=== PATIENT | male | born 1950 | race Caucasian/White ===

== ENCOUNTER 2023-08-23 09:03 | Outpatient (RCR) | payer OTHER, SELFPAY | END 2023-08-23 23:59 | disposition home or self-care (01) | LOC: RPT 09:03 | PROVIDERS: ATTENDING PHYSICIAN Specialist; PRIMARYCARE PHYSICIAN Internal Medicine | DX: C61 Malignant neoplasm of prostate (principal); M62.89 Other specified disorders of muscle; R39.15 Urgency of urination; Z73.6 Limitation of activities due to disability; N39.41 Urge incontinence; N39.3 Stress incontinence (female) (male); R10.2 Pelvic and perineal pain | CPT/HCPCS: 97014; 97110; 97112; 97140; 97530 ==

== ENCOUNTER 2023-09-06 08:49 | Outpatient (RCR) | payer OTHER, SELFPAY | END 2023-09-06 23:59 | disposition home or self-care (01) | LOC: RPT 08:49 | PROVIDERS: ATTENDING PHYSICIAN Specialist; PRIMARYCARE PHYSICIAN Internal Medicine | DX: C61 Malignant neoplasm of prostate (principal); M62.89 Other specified disorders of muscle; R39.15 Urgency of urination; Z73.6 Limitation of activities due to disability; N39.41 Urge incontinence; N39.3 Stress incontinence (female) (male); R10.2 Pelvic and perineal pain | CPT/HCPCS: 97110; 97163; 97530 ==

== ENCOUNTER 2023-10-21 11:59 | Outpatient (RCR) | payer OTHER, SELFPAY | END 2023-10-21 23:59 | disposition home or self-care (01) | LOC: RPT 11:59 | PROVIDERS: ATTENDING PHYSICIAN Specialist; PRIMARYCARE PHYSICIAN Internal Medicine | DX: C61 Malignant neoplasm of prostate (principal); M62.89 Other specified disorders of muscle; R39.15 Urgency of urination; N39.41 Urge incontinence; Z73.6 Limitation of activities due to disability; N39.3 Stress incontinence (female) (male); R10.2 Pelvic and perineal pain | CPT/HCPCS: 97112; 97530 ==

== ENCOUNTER 2023-11-15 13:11 | Outpatient (RCR) | payer OTHER, SELFPAY | END 2023-11-15 23:59 | disposition home or self-care (01) | LOC: RPT 13:11 | PROVIDERS: ATTENDING PHYSICIAN Specialist; PRIMARYCARE PHYSICIAN Internal Medicine | DX: C61 Malignant neoplasm of prostate (principal); M62.89 Other specified disorders of muscle; R39.15 Urgency of urination; N39.41 Urge incontinence; Z73.6 Limitation of activities due to disability; N39.3 Stress incontinence (female) (male); R10.2 Pelvic and perineal pain | CPT/HCPCS: 97140; 97530 ==

== ENCOUNTER 2024-01-03 10:39 | Outpatient (RCR) | payer OTHER, SELFPAY | END 2024-01-03 23:59 | disposition home or self-care (01) | LOC: RPT 10:39 | PROVIDERS: ATTENDING PHYSICIAN Specialist; PRIMARYCARE PHYSICIAN Internal Medicine | DX: N39.3 Stress incontinence (female) (male) (principal); C61 Malignant neoplasm of prostate (principal); M62.89 Other specified disorders of muscle; R39.15 Urgency of urination; N39.41 Urge incontinence; Z73.6 Limitation of activities due to disability; R10.2 Pelvic and perineal pain | CPT/HCPCS: 97140; 97530 ==

== ENCOUNTER 2024-03-03 10:04 | Outpatient (RCR) | payer OTHER, SELFPAY | END 2024-03-03 12:29 | disposition home or self-care (01) | LOC: RPT 10:04 | PROVIDERS: ATTENDING PHYSICIAN Specialist; PRIMARYCARE PHYSICIAN Internal Medicine | DX: C61 Malignant neoplasm of prostate (principal); M62.89 Other specified disorders of muscle; R39.15 Urgency of urination; N39.41 Urge incontinence; Z73.6 Limitation of activities due to disability; N39.3 Stress incontinence (female) (male); R10.2 Pelvic and perineal pain | CPT/HCPCS: 97530 ==